=== PATIENT | female | born 1945 | race Two or more races ===

== ENCOUNTER 2016-08-01 14:52 | Emergency (ER) | payer MEDICAID ==
[~2016-08-01] VITALS: Ht 162.6 cm; Wt 88.9 kg
[2016-08-01] MEDS ORDERED: MECLIZINE HCL 12.5 MG TABLET PO ONE (15:00)
[2016-08-01] MEDS ORDERED: DIAZEPAM 5 MG/ML 2 ML DISP.SYRIN IV ONE (15:00)
[2016-08-01] MEDS ORDERED: ONDANSETRON HCL/PF 4 MG/2 ML VIAL IVP ONE (15:00)
[2016-08-01] MEDS ORDERED: IV NS 0.9% 1,000 ML BAG IV ONE (15:00)
--- NOTE | 2016-08-01 15:00 | NUR ---
PT CAME IN FOR FEELING DIZZY (LIKE THE ROOM IS SPINNING) WITH [place] AND VOMITING. VSS. NOTED ANXIOUS. SEEN BY MD FOR EVAL. NO ACTIVE VOMITING NOTED. SAFETY AND COMFORT MEASURES PROVIDED. WILL MONITOR.
[2016-08-01] MEDS ORDERED: IV NS 0.9% 1,000 ML ONE (15:04)
[2016-08-01] MEDS ORDERED: DIAZEPAM 5 MG/ML 2 ML DISP.SYRIN ONE (15:04)
--- NOTE | 2016-08-01 15:05 | NUR ---
IV STARTED RIGHT AC, 20 GAUGE. BLOOD DRAWN FOR LAB WORK.
[2016-08-01] MEDS ORDERED: IV SET PRIMARY PUMP SET 1 EA INFUS.SET MC ONE (15:06)
[2016-08-01] MEDS ORDERED: MECLIZINE HCL 25 MG TABLET ONE (15:06)
[2016-08-01] MEDS ORDERED: ONDANSETRON HCL/PF 4 MG/2 ML VIAL ONE (15:06)
[2016-08-01 15:11] LABS: BASOPHILS # (AUTO) 0.1 /CMM (0.0-0.2); BASOPHILS % (AUTO) 0.8 % (0.0-2.0); EOSINOPHILS # (AUTO) 0.1 /CMM (0.0-0.7); EOSINOPHILS % (AUTO) 1.1 % (0.0-6.0); HEMATOCRIT 39 % (33-45); HEMOGLOBIN 13.2 g/dL (11.5-14.8); LYMPHOCYTES # (AUTO) 6.7 /CMM (0.8-4.8); LYMPHOCYTES % (AUTO) 56.1 % (20.0-44.0); MEAN CORPUSCULAR HEMOGLOBIN 29 PG (26.0-33.0); MEAN CORPUSCULAR HGB CONC 34 g/dl (31.0-36.0); MEAN CORPUSCULAR VOLUME 85 fL (82-100); MONOCYTES # (AUTO) 0.7 /CMM (0.1-1.30); MONOCYTES % (AUTO) 6.1 % (2.0-12.0); NEUTROPHILS # (AUTO) 4.3 /CMM (1.8-8.9); NEUTROPHILS % (AUTO) 35.9 % (43.0-81.0); PLATELET COUNT (AUTO) 281 /CMM (150-450); RDW COEFFICIENT OF VARIATION 12.8 (11.5-15.0); RED BLOOD CELL COUNT(AUTO) 4.54 MIL/uL (4.0-5.2); WHITE BLOOD COUNT (AUTO) 11.9 K/uL (4.3-11.0)
--- NOTE | 2016-08-01 15:16 | NUR ---
MEDICATED PATIENT PER MD ORDERS.
[2016-08-01 15:21] LABS: CALCIUM, SERUM 9.4 mg/dL (8.5-10.1); CARBON DIOXIDE 23 mmol/L (21-32); CHLORIDE 103 mmol/L (98-107); CREATININE 0.9 mg/dL (0.6-1.3); GLUCOSE 149 mg/dL (74-106); POTASSIUM 3.1 mmol/L (3.5-5.1); SODIUM SERUM 138 mmol/L (136-145); UREA NITROGEN, BLOOD 14 mg/dL (7-18)
[2016-08-01 15:24] LABS: INR 1.01 (0.87-1.13); PROTHROMBIN TIME 10.5 SECS (9.5-12.7)
[2016-08-01 15:27] LABS: ALANINE AMINOTRANSFERASE 32 U/L (12-78); ALBUMIN 3.9 g/dL (3.4-5.0); ALKALINE PHOSPHATASE 102 U/L (46-116); ASPARTATE AMINOTRANSFERASE 25 U/L (15-37); BILIRUBIN,DIRECT 0.1 mg/dL (0.0-0.2); BILIRUBIN,TOTAL 0.7 mg/dL (0.2-1.0)
--- NOTE | 2016-08-01 15:28 | NUR ---
PT TAKEN TO CT.
[2016-08-01 15:29] LABS: TROPONIN I < 0.017 ng/mL (0.00-0.056)
--- NOTE | 2016-08-01 16:50 | NUR ---
Patient discharged to home in stable condition. Written and verbal after care instructions given. Patient verbalizes understanding of instruction.IV removed. Catheter intact and site benign. Pressure and 4x4 applied to site. No bleeding noted.
[2016-08-01 16:53] VITALS: BP 128/76
--- NOTE | 2016-08-01 17:10 | NUR ---
PATIENT'S SYMPTOMS RESOLVED. PRESCRIPTIONS HANDED TO PATIENT. DISCHARGE PAPERWORK PROVIDED. PATIENT LEAVING WITH .
== END 2016-08-01 17:07 | disposition home or self-care (01) ==
LOC: ER 14:55
DX: R42 Dizziness and giddiness (principal); R11.2 Nausea with vomiting, unspecified; I10 Essential (primary) hypertension
CPT/HCPCS: 36415; 70450; 71010; 80048; 80076; 84484; 85025; 85730; 93005; 96361; 96374; 96375; 99285; A4606; J2405; J3360; J7030; J8597; Z7610